=== PATIENT | female | born 1955 | race Caucasian/White ===

== ENCOUNTER 2020-09-29 14:40 | Emergency (ER) | payer BC ==
[2020-09-29] MEDS ORDERED: HYDROCODON-ACE1 EAC4 PO (16:10)
== END 2020-09-29 16:20 | disposition home or self-care (01) ==
LOC: ER1 14:40
DX: S42.251A Displaced fracture of greater tuberosity of right humerus, initial encounter for closed fracture (principal); I10 Essential (primary) hypertension; Z79.899 Other long term (current) drug therapy; Z88.1 Allergy status to other antibiotic agents; Z88.0 Allergy status to penicillin; W01.0XXA Fall on same level from slipping, tripping and stumbling without subsequent striking against object, initial encounter; Y92.009 Unspecified place in unspecified non-institutional (private) residence as the place of occurrence of the external cause
CPT/HCPCS: 71045; 73060; 73080; 99283

== ENCOUNTER → 2021-09-12 | Outpatient (CLI) | payer BC ==
[~2021-09-12] MED LIST: HYDROCODON-ACE1 EAC4 PO
== END ==
LOC: KOH-I 09:04
DX: M25.551 Pain in right hip (principal)
CPT/HCPCS: 73502; 73552

== ENCOUNTER → 2021-12-12 | Outpatient (CLI) | payer BC ==
[~2021-12-12] MED LIST changes: +BENADRYL 25MG C25 MG PO; +BENADRYL ALLERG25 MG PO; +COLLAGEN COMPLEX PO; +LEXAPRO5 MG PO
[2021-12-12 09:01] LABS: RED BLOOD COUNT 4.07 M/UL (4.00-5.10); WHITE BLOOD COUNT 4.6 K/UL (4.5-11.0)
== END ==
LOC: OPSV2 08:00
PROVIDERS: Obstetrics & Gynecology
DX: Z01.818 Encounter for other preprocedural examination (principal); N81.10 Cystocele, unspecified
CPT/HCPCS: 36415; 71046; 81001; 85025; 93005

== ENCOUNTER 2021-12-21 08:02 | Day surgery (SDC) | payer BC, MEDICARE ==
[~2021-12-21] VITALS: Ht 170.2 cm; Wt 56.7 kg
[2021-12-21] MEDS ORDERED: NAPROXEN 375 M375 MG PO (11:18)
[2021-12-21] MEDS ORDERED: HYDROCODON-ACE1 EAC2 PO (11:18)
[2021-12-21] MEDS ORDERED: MIRALAX 119 GR119 GM PO (11:18)
[2021-12-22 03:08] LABS: HEMOGLOBIN 11.8 gm/dl (12.3-15.3)
== END 2021-12-22 12:52 | disposition home or self-care (01) ==
LOC: OR 08:02 → M/S 12:34 → OR 13:30
PROVIDERS: Obstetrics & Gynecology
DX: N81.2 Incomplete uterovaginal prolapse (principal); N81.82 Incompetence or weakening of pubocervical tissue; D25.9 Leiomyoma of uterus, unspecified; N81.6 Rectocele; N81.89 Other female genital prolapse; I10 Essential (primary) hypertension; M19.90 Unspecified osteoarthritis, unspecified site; F32.A Depression, unspecified; Z88.0 Allergy status to penicillin; Z88.1 Allergy status to other antibiotic agents; Z79.899 Other long term (current) drug therapy
CPT/HCPCS: 36415; 85014; 85018; C1769; J1100; J1170; J1580; J1885; J2001; J2405; J2704; J2795; J3010